=== PATIENT | female | born 1970 | race Caucasian/White ===

== ENCOUNTER 2016-08-21 18:19 | Observation (INO) | payer BC ==
[2016-08-21 19:25] VITALS: BMI 26.1
[2016-08-21 19:40] LABS: MPV 6.5 fL (7.4-10.4)
[2016-08-21 19:44] LABS: LEUKOCYTES/URINE 2+ (NEGATIVE); NITRITE/URINE NEG (NEGATIVE); URINE OCCULT BLOOD 1+ (NEG/TRACE); WBC/URINE TNTC (0-5)
[2016-08-21 19:57] LABS: SEG NEUTROPHIL 91 % (45-76)
[2016-08-21 19:58] LABS: BLOOD UREA NITROGEN 20 MG/DL (7-17); CALC CORRECTED 9.7 MG/DL (8.4-10.2); CALCIUM 9.2 MG/DL (8.4-10.2); CALCULATED OSMOLALITY 271 MOs/Kg (270-290); CHLORIDE 101 mEq/L (98-107); GLUCOSE 131 MG/DL (70-99); SODIUM LEVEL 138 mEq/L (137-146); TOTAL PROTEIN 7.2 G/DL (6.3-8.2)
--- NOTE | 2016-08-21 21:41 | DIRPT ---
CLINICAL DATA: Right flank pain and hematuria, history of calculi EXAM: CT ABDOMEN AND PELVIS WITHOUT CONTRAST TECHNIQUE: Multidetector CT imaging of the abdomen and pelvis was performed following the standard protocol without IV contrast. COMPARISON: 12/28/2007 FINDINGS: Lower chest: Minimal subsegmental atelectasis or scarring lateral left lung base Hepatobiliary: Negative Pancreas: Negative Spleen: Negative Adrenals/Urinary Tract: Bladder is decompressed. Adrenal glands are negative. Left kidney is negative. There is severe nephromegaly on the right. There is perinephric inflammation on the right. There is severe collecting system dilatation within the right kidney. There is a stone measuring 11 mm in the upper pole. There is a 13 interpolar stone. There are 2 stones in the lower pole measuring 10 and 11 mm, respectively. There are a few tiny stone fragments in the proximal ureter just beyond the ureteropelvic junction. Beyond this the ureter is decompressed with no calculi seen more distally. Stomach/Bowel: Negative Vascular/Lymphatic: Mild atherosclerotic aortoiliac calcification Reproductive: Negative Other: No ascites Musculoskeletal: No acute findings IMPRESSION: Numerous intrarenal calculi on the right. Right nephromegaly with perinephric inflammation and severe hydronephrosis of the intrarenal collecting system. There are a few tiny calculi in the proximal most aspect of the right ureter, beyond which the ureter is decompressed. There appears to be obstruction at the level of the proximal most right ureter. This may be related to the tiny calculi observed, and it is possible that all these calculi are more extensive than they appear radiographically. Other less likely possibilities include stricture or transitional neoplasm causing obstruction at this level. Electronically Signed By: Anshul Mccray M.D. On: 08/21/2016 21:39
[2016-08-21] MEDS ORDERED: CEFTRIAXONE 2 GM in D5W 100 ML IV ONE (22:26)
--- NOTE | 2016-08-21 22:31 | EDPRACDOC ---
- General Information Chief Complaint: Back Pain Stated Complaint: RT FLANK PAIN Time Seen by Provider: 08/21/16 22:25 Information Source: Patient Mode Of Arrival: Car Home Medications: Home Medications Ciprofloxacin HCl [Cipro] 500 mg PO BID #14 tab 08/07/15 Phenazopyridine HCl [Pyridium] 200 mg PO TID PRN #6 tablet 08/07/15 Ciprofloxacin HCl [Cipro] 500 mg PO BID #20 tab 08/11/16 Hydrocodone Bit/Acetaminophen [Hydrocodon-Acetaminophen 5-325] 1 - 2 tab PO Q4H PRN #20 tab 08/11/16 Ondansetron HCl [Zofran] 4 mg PO TID PRN #14 tablet 08/11/16 Allergies/Adverse Reactions: Allergies Allergy/AdvReac Type Severity Reaction Status Date / Time No Known Allergies Allergy Verified 08/07/15 19:24 - History of Present Illness Onset: 2 weeks Pain Location: Reports: Right, Flank Pain Radiates To: Reports: None Pain Caused By: Reports: Spontaneous Relevant History: Reports: Urolithiasis Currently ?: No Pain Severity: Reports: Moderate Pain Quality: Reports: Sharp Associated Signs and Symptoms: Reports: Nausea ED Past Medical History - History Reviewed Yes Nurses notes reviewed and agree except as marked - Patient Medical History Psychological History: Denies: Depression - Social Medical History Smoking Status: Never smoker EDM Review of Systems - Review of Systems ROS Negative Except as Marked: Yes All systems reviewed and were negative except as marked - Physical Exam Constitutional: Alert (Awake), No apparent distress Oriented to: Time, Person, Place Last recorded Vital Signs: Last Vital Signs Temp 98.6 F 08/21/16 19:16 Pulse 74 08/21/16 22:03 Resp 18 08/21/16 22:03 BP 110/56 L 08/21/16 22:03 Pulse Ox 96 08/21/16 22:03 Oxygen Pulse Oxygen Saturation 96 O2 Device Room Air Oxygen Flow Rate Fraction of Inspired Oxygen ( FIO2) - HEENT Head: Normal ( normocephalic) Eye Exam: Normal (PERRL, EOMI, Sclera white) Oropharynx: Normal (Pharynx:Moist without exudate,Gums-no swelling) Tympanic Membrane: Normal ENT EAC: Normal TMJ: Normal Nose: No Symptoms Reported (septum midline) Neck: Normal (FROM, trachea at midline) - Respiratory/Cardiovascular Respiratory: Normal - CTA (BBS clear to auscultation without adventitious sounds ) Cardiovascular: Normal (RRR without murmur, gallop or rub) - GI Auscultation: Normal (NABS) Palpation: Normal (Soft,No rebound or guarding, non distended) Tenderness: Non tender Guthrie's Sign: Negative - Musculoskeletal Back: CVA Tenderness Extremities: Normal (Normal tone, Pulses 2+ No cyanosis or edema, FROM) - Integumentary Skin: Normal, Warm, Dry Lymphatics: Normal (no adenopathy) - Neurologic Memory Impaired: Normal Motor Function: Normal (Normal tone, Pulses 2+ No cyanosis or edema, FROM) Cranial Nerve: Normal (CN II-X11 intact sensation, strength 5/5) Cerebellar: Normal Mood Description: Normal Perception: Normal - Results 08/21/16 19:31 08/21/16 19:31 WBC 25.2 xk/uL (3.8-10.8) H 08/21/16 19:31 RBC 4.14 xM/uL (4.20-5.40) L 08/21/16 19:31 Hgb 10.9 g/dL (12.0-16.0) L 08/21/16 19:31 Hct 33.7 % (36-47) L 08/21/16 19:31 MCV 82 fL (81-99) 08/21/16 19:31 MCH 26.3 pg (27-32) L 08/21/16 19:31 MCHC 32.3 g/dl (33-36) L 08/21/16 19:31 RDW 15.4 % (11.5-14.5) H 08/21/16 19:31 Plt Count 521 xk/uL (130-400) H 08/21/16 19:31 MPV 6.5 fL (7.4-10.4) L 08/21/16 19:31 Neut % (Auto) Cancelled 08/21/16 19:31 Lymph % (Auto) Cancelled 08/21/16 19:31 Moore % (Auto) Cancelled 08/21/16 19:31 Eos % (Auto) Cancelled 08/21/16 19:31 Baso % (Auto) Cancelled 08/21/16 19:31 Absolute Neuts (auto) Cancelled 08/21/16 19:31 Absolute Lymphs (auto) Cancelled 08/21/16 19:31 Seg Neuts % (Manual) 91 % (45-76) H 08/21/16 19:31 Band Neutrophils % 5 % (0-5) 08/21/16 19:31 Lymphocytes % (Manual) 3 % (17-44) L 08/21/16 19:31 Monocytes % (Manual) 1 % (0-10) 08/21/16 19:31 Absolute Neutrophils 24.19 xk/uL (1.7-8.2) H 08/21/16 19:31 Absolute Lymphocytes 0.76 xk/uL (0.65-4.75) 08/21/16 19:31 Platelet Estimate Norm (NORMAL) 08/21/16 19:31 RBC Morphology Norm 08/21/16 19:31 Sodium 138 mEq/L (137-146) 08/21/16 19:31 Potassium 4.2 mEq/L (3.5-5.1) 08/21/16 19:31 Chloride 101 mEq/L (98-107) 08/21/16 19:31 Carbon Dioxide 26 mMOL/L (22-33) 08/21/16 19:31 Anion Gap 15 mEq/L (8-16) 08/21/16 19:31 BUN 20 MG/DL (7-17) H 08/21/16 19:31 Creatinine 0.90 MG/DL (0.52-1.04) 08/21/16 19:31 Estimated GFR (MDRD) > 60 mL/min (>=60) 08/21/16 19:31 Glucose 131 MG/DL (70-99) H 08/21/16 19:31 Calculated Osmolality 271 MOs/Kg (270-290) 08/21/16 19:31 Calcium 9.2 MG/DL (8.4-10.2) 08/21/16 19:31 Corrected Calcium 9.7 MG/DL (8.4-10.2) 08/21/16 19:31 Total Bilirubin 0.5 MG/DL (0.2-1.3) 08/21/16 19:31 AST 12 IU/L (14-36) L 08/21/16 19:31 ALT 24 IU/L (9-52) 08/21/16 19:31 Alkaline Phosphatase 53 IU/L (38-126) 08/21/16 19:31 Total Protein 7.2 G/DL (6.3-8.2) 08/21/16 19:31 Albumin 3.5 G/DL (3.5-5.0) 08/21/16 19:31 Urine Color Miriam 08/21/16 19:31 Urine Clarity Cldy 08/21/16 19:31 Urine pH 6.0 (5.0-8.0) 08/21/16 19:31 Ur Specific [place] 1.030 (1.003-1.035) 08/21/16 19:31 Urine Protein 1+ (NEG/TRACE) H 08/21/16 19:31 Urine Glucose (UA) Trace (NEGATIVE) 08/21/16 19:31 Urine Ketones Neg (NEGATIVE) 08/21/16 19:31 Urine Occult Blood 1+ (NEG/TRACE) H 08/21/16 19:31 Urine Nitrite Neg (NEGATIVE) 08/21/16 19:31 Urine Bilirubin Neg (NEGATIVE) 08/21/16 19:31 Urine Urobilinogen <2.0 MG/DL (0-1) 08/21/16 19:31 Ur Leukocyte Esterase 2+ (NEGATIVE) H 08/21/16 19:31 Urine RBC 10-20 (0-5) H 08/21/16 19:31 Urine WBC Tntc (0-5) H 08/21/16 19:31 Ur Epithelial Cells 1+ 08/21/16 19:31 Urine Bacteria Few (NEG/FEW) 08/21/16 19:31 Urine Mucus Mod (NEG/OCC) H 08/21/16 19:31 Urine Test Neg (NEGATIVE) 08/21/16 19:31 Lab Results 08/21/16 08/21/16 08/21/16 19:31 19:31 19:31 WBC 25.2 H RBC 4.14 L Hgb 10.9 L Hct 33.7 L MCV 82 MCH 26.3 L MCHC 32.3 L RDW 15.4 H Plt Count 521 H MPV 6.5 L Neut % (Auto) Cancelled Lymph % (Auto) Cancelled Moore % (Auto) Cancelled Eos % (Auto) Cancelled Baso % (Auto) Cancelled Absolute Neuts (auto) Cancelled Absolute Lymphs (auto) Cancelled Seg Neuts % (Manual) 91 H Band Neutrophils % 5 Lymphocytes % (Manual) 3 L Monocytes % (Manual) 1 Absolute Neutrophils 24.19 H Absolute Lymphocytes 0.76 Platelet Estimate Norm RBC Morphology Norm Sodium 138 Potassium 4.2 Chloride 101 Carbon Dioxide 26 Anion Gap 15 BUN 20 H Creatinine 0.90 Estimated GFR (MDRD) > 60 Glucose 131 H Calculated Osmolality 271 Calcium 9.2 Corrected Calcium 9.7 Total Bilirubin 0.5 AST 12 L ALT 24 Alkaline Phosphatase 53 Total Protein 7.2 Albumin 3.5 Urine Color Urine Clarity Urine pH Ur Specific [place] Urine Protein Urine Glucose (UA) Urine Ketones Urine Occult Blood Urine Nitrite Urine Bilirubin Urine Urobilinogen Ur Leukocyte Esterase Urine RBC Urine WBC Ur Epithelial Cells Urine Bacteria Urine Mucus Urine Test Neg 08/21/16 19:31 WBC RBC Hgb Hct MCV MCH MCHC RDW Plt Count MPV Neut % (Auto) Lymph % (Auto) Moore % (Auto) Eos % (Auto) Baso % (Auto) Absolute Neuts (auto) Absolute Lymphs (auto) Seg Neuts % (Manual) Band Neutrophils % Lymphocytes % (Manual) Monocytes % (Manual) Absolute Neutrophils Absolute Lymphocytes Platelet Estimate RBC Morphology Sodium Potassium Chloride Carbon Dioxide Anion Gap BUN Creatinine Estimated GFR (MDRD) Glucose Calculated Osmolality Calcium Corrected Calcium Total Bilirubin AST ALT Alkaline Phosphatase Total Protein Albumin Urine Color Miriam Urine Clarity Cldy Urine pH 6.0 Ur Specific [place] 1.030 Urine Protein 1+ H Urine Glucose (UA) Trace Urine Ketones Neg Urine Occult Blood 1+ H Urine Nitrite Neg Urine Bilirubin Neg Urine Urobilinogen <2.0 Ur Leukocyte Esterase 2+ H Urine RBC 10-20 H Urine WBC Tntc H Ur Epithelial Cells 1+ Urine Bacteria Few Urine Mucus Mod H Urine Test - Departure Yes I personally saw and evaluated the patient. Disposition: Admit IP To This Hospital Condition: Good Final Diagnosis: URETEROLITHIASIS, PYELONEPHRITIS Decision to Admit Time: 22:31 (HEATHER) Decision to admit date: 08/21/16 Decision to admit: from ED
[2016-08-21] MEDS ORDERED: ONDANSETRON HCL 4 MG/2 ML VIAL IV ONE (22:38)
[2016-08-21] MEDS ORDERED: HYDROmorphone 1 MG INJECTION IV ONE (22:38)
[2016-08-21] MEDS ORDERED: HYDROmorphone 1 MG INJECTION IV PRN (23:05)
[2016-08-22] MEDS: D5W-1/4NS 1,000 ML IV SCH ×2 (00:05→08:15)
[2016-08-22] MEDS: ONDANSETRON HCL 4 MG/2 ML VIAL IV PRN ×2 (00:08→07:29)
[2016-08-22] MEDS ORDERED: Vaccine Screening Complete SCH (01:00)
[2016-08-22] MEDS ORDERED: HYDROmorphone 2 MG/ML VIAL ONE (07:24)
--- NOTE | 2016-08-22 11:19 | HISTPHYS ---
- Chief Complaint Pain in the rt flank and rt upper quadrant on and off for 4 to 5 days.Seen in ER 4 days ago and treated for the UTI and sent home.Camr back last night with the worst pain,nausea and vomiting. - Past Medical History GI/ History: Reports: Kidney Stones. Denies: Hepatitis (type) Systemic History: Denies: Anemia Psychological History: Denies: Anxiety, Bipolar Disorder, Depression - Surgical History Denies: Mastectomy - Family History Reports: Hypertension (MOTHER), Diabetes (MOTHER). Denies: Cancer, Stroke, Cardiac Disorders - Allergies Allergies No Known Allergies Allergy (Verified 08/07/15 19:24) - Medications Home Medications No Home Medications 08/22/16 - Social History Travel Outside of [place] in the Last 3 Months?: No Smoking Status: Never smoker Review Of Systems - Review of Systems Genitourinary: Other (History of stone desease and had ESWL many years ago.) - Exam Vital Signs: Temperature: 98.1 F (08/22/16 10:40) HR: 70 (08/22/16 10:40) RR: 16 (08/22/16 10:40) BP: 112/61 (08/22/16 10:40) Pulse Ox: 98 (08/21/16 23:40) General: Alert, Oriented x3, Cooperative, No acute distress Cardiovascular: Regular rate Gastrointestinal: Soft Genitourinary Exam: Other (Tender in the rt CVA on percussion.) Skin: Warm,Dry and Intact Psych/Mental Status: Appropriate - Labs Result Diagrams: 08/21/16 19:31 08/21/16 19:31 - Assessment and Plan (1) Right kidney stone Acute N20.0 - CALCULUS OF KIDNEY Cysto,rt retrograde pyelogram and placement of DJ stent and ESWL at a later date. Treat the Pyelonephritis in the mean time.
[2016-08-22] MEDS ORDERED: MEPERIDINE 25 MG/ML TUBEX IV PRN (12:11)
[2016-08-22] MEDS ORDERED: hydrALAZINE 20 MG/ML VIAL IV PRN (12:11)
[2016-08-22] MEDS ORDERED: FENTANYL 100 MCG/2 ML VIAL IV PRN ×2 (12:11)
[2016-08-22] MEDS ORDERED: HYDROmorphone 1 MG INJECTION IV PRN ×2 (12:11)
[2016-08-22] MEDS ORDERED: ONDANSETRON HCL 4 MG ODT TAB PO PRN (12:11)
[2016-08-22] MEDS ORDERED: ONDANSETRON HCL 4 MG/2 ML VIAL IV PRN (12:11)
[2016-08-22] MEDS ORDERED: PROMETHAZINE 25 MG/ML VIAL IV PRN ×2 (12:11)
[2016-08-22] MEDS ORDERED: LABETALOL 20 MG/4 ML SYRINGE IV PRN (12:11)
--- NOTE | 2016-08-22 12:11 | SC.ANESPOS ---
Post-Anesthesia Note LOC: [place] on Calling Post-Anesthesia Assessment: Awake, Returned to Baseline, Hemodynamically Stable , Pain Control Adequate Phase I & II Recovery Complete: Yes Apparent Anesthesia Complication: No : N PACU Discharge Time: 23:36 - Vital Signs Blood Pressure: 144/84 Pulse: 82 Resp Rate: 16 O2 Sat: 98 Temp: 97.9 F - Comments Anesthesia Discharge Time Report Time 23:36
[2016-08-22] MEDS ORDERED: ISOVUE-300 (61%) 50 ML ONE (12:14)
--- NOTE | 2016-08-22 12:14 | HIM.ANES ---
Anesthesia Evaluation & Plan - Focused Review of Systems Now: No Cardiac History: No: Hx Cardiac Disorders HEENT: No: Other HEENT Problems Gastrointestinal: No: Hx Gastrointestinal Disorders Neurological/Musculoskeletal: Yes: Hx Migraine No: Hx Neurological Disorders Psychological: No Hx Anxiety, No Hx Depression, No Hx Mental/Emotional Disorders , No Hx Bipolar Disorder Blood/Autoimmune: No: Hx Blood Transfusions, Hx Anemia, Hx AIDS, Hx Hepatitis (type) Smoking Status: Never smoker - Focused Physical Exam NPO since: midnight Mallampati: Class II Thyromental Distance: Greater than 3 Neck: Full Range of Motion Dental: Normal - no significant findings Cardiovascular/Chest: Normal Respiratory: Lungs clear Any problems with anesthesia, including nausea and vomiting?: No Any relatives with a history of Malignant Hyperthermia?: No Beta Eligio given (if appropriate): N/A Other: Problem List Problem Status Onset Right kidney stone Acute Pyelonephritis Acute PT/PTT/INR/ Urine Test Neg (NEGATIVE) 08/21/16 19:31 Allergies Allergy/AdvReac Type Severity Reaction Status Date / Time No Known Allergies Allergy Verified 08/07/15 19:24 Home Medications Medication Instructions Recorded Last Taken Type No Home Medications 08/22/16 Unknown History Vital Signs Temperature 97.9 F 08/22/16 12:11 Pulse Rate 82 08/22/16 12:11 Respiratory Rate 16 08/22/16 12:11 Blood Pressure 144/84 08/22/16 12:11 Pulse Oxygen Saturation 98 08/22/16 12:11 - Anesthetic Plan Anesthesia Type: General ASA Class: 2 -: I have examined this patient and reviewed the medical record. The patient has been assessed prior to anesthesia. Risks and benefits of anesthesia and anesthetic technique options have been discussed and all questions answered. The patient accepts the risk and desires me to proceed with the planned anesthetic.
[2016-08-22] MEDS ORDERED: MIDAZOLAM 2 MG/2 ML VIAL IV ONE (12:29)
[2016-08-22] MEDS ORDERED: PROPOFOL 200 MG/20 ML VIAL IV ONE (12:29)
[2016-08-22] MEDS ORDERED: FENTANYL 100 MCG/2 ML VIAL IV ONE (12:29)
[2016-08-22] MEDS ORDERED: GLYCOPYRROLATE 1 MG VIAL IM ONE (12:29)
[2016-08-22] MEDS ORDERED: DEXAMETHASONE 4 MG/ML VIAL IV ONE (12:29)
[2016-08-22] MEDS ORDERED: ONDANSETRON HCL 4 MG/2 ML VIAL IV ONE (12:29)
[2016-08-22] MEDS ORDERED: HYDROCODONE 5 MG/ACETAMIN 325 MG TAB PO PRN (13:06)
[2016-08-22] MEDS ORDERED: OXYBUTYNIN 5 MG TAB PO PRN (13:06)
--- NOTE | 2016-08-22 13:22 | HIMOPRPT ---
DATE OF PROCEDURE: 08/22/16 PREOPERATIVE DIAGNOSIS: RT Renal calculi and pyelonephritis[]. POSTOPERATIVE DIAGNOSIS: [].Same PROCEDURE PERFORMED: Cystoscopy, [right retrograde pyelogram, and double-J ureteral stent.. ANESTHESIA: General by LMA ANESTHESIOLOGI[]. SURGEON: Gael Chiu MD PROCEDURE IN DETAIL: The patient was brought to the operating room and placed in supine position. General anesthesia by LMA was given. Once adequate level of anesthesia was obtained, the patient was placed in lithotomy position. Genitalia was prepped and draped in usual sterile manner. The cystoscopy was carried down through [23] size of operative cystoscope. .Bladder interior was examined. Both ureteral orifices were seen. There was effluxing seen on the right and left side. No other abnormality within the bladder was noted. [Righ] retrograde pyelogram was carried out through 5-Slovenian cone-tipped ureteral catheter which was introduced without any difficulty. Contrast went to the renal pelvis. a guidewire was passed and it bypassed the stone, went to the renal pelvis, . In the end of the procedure, a double-J ureter stent, size [ 6]-Slovenian and cm long with a tether was inserted. Tether was brought out through the urethra and taped. The position of the stent was checked and found to be very adequate upper end in the renal pelvis and lower end in the bladder. The patient was then returned to the recovery room in stable and satisfactory condition. Discharge Medications:[]. Follow-up: The patient will be observed in the hospital for the treatment of the pyelonephritis.
[2016-08-22] MEDS ORDERED: LR 1,000 ML IV ONE (13:50)
[2016-08-22] MEDS ORDERED: Levofloxacin 500 mg/100 ml D5W 500 MG/100 ML RTU IV SCH (14:00)
[2016-08-22] MEDS: D5W/LR 1,000 ML IV SCH (22:10)
[2016-08-23 06:20] LABS: MPV 7.1 fL (7.4-10.4)
[2016-08-23 06:49] LABS: BLOOD UREA NITROGEN 15 MG/DL (7-17); CALCIUM 8.7 MG/DL (8.4-10.2); CALCULATED OSMOLALITY 268 MOs/Kg (270-290); CHLORIDE 105 mEq/L (98-107); GLUCOSE 123 MG/DL (70-99); SODIUM LEVEL 138 mEq/L (137-146)
[2016-08-23] MEDS: D5W/LR 1,000 ML IV SCH (08:16)
[2016-08-23 08:18] LABS: SEG NEUTROPHIL 90 % (45-76)
[2016-08-23 10:33] VITALS: BP 115/56; PULSE 63; TEMP 97.9
[2016-08-23] MEDS ORDERED: ONDANSETRON HCL 4 MG ODT TAB PO PRN (11:47)
--- NOTE | 2016-08-23 11:54 | PCM.DCS92 ---
- Final/Secondary Discharge Diagnosis (1) Right kidney stone Acute N20.0 - CALCULUS OF KIDNEY Present on Admission: Yes Plan/Goal/Comment: Pt will be seen in the office and ESWL will be arranged for the stones in the rt kidney. Discharge Disposition: Home Discharge Condition: Good Cognitive Discharge Status: Unimpaired Fuctional Discharge Status: Independent Forms: Patient Discharge Instructions Physician Follow up/Referrals: Gael Chiu MD [Staff Physician] - 08/23/16 Additional Instructions: YOU WILL NEED TO GO BY DR. CHIU'S OFFICE TODAY AFTER DISCHARGE TO SIGN CONSENT FORMS FOR PROCEDURE. Diet at Discharge: Regular Activity: No Heavy Lifting Call Office For: Worsening Symptoms, Fever over 100.5, Pain Uncontrolled By Meds - DC Summary Notes Hospital Course Note:: Discharge summary on patient named AMA BORGES admitted to [facility] on 08/21/16 by Gael Chiu MD. Date of discharge is []. Following the admission Pt was given analgesics, antibiotics and she underwent endoscopic manipulation of the stone at the UPJ and a stent was placed. The WBC count is st6ill high but she has remained afebrile and thwe cultures have been negative > she is being discharged and will be seen in the office for follow up and ESWL will be arranged. Final Diagnosis : Right renal calculi and right pyelonephritis. Wound Care May Shower Starting:: 08/23/16 Ability To Perform Care (if applicable): Yes
[2016-08-23] MEDS ORDERED: LEVOFLOXACIN 500 MG TAB PO SCH (14:00)
[2016-08-23] MEDS ORDERED: OXYCODONE HCL 5 MG TABLET PO SCH (14:00)
== END 2016-08-23 12:30 | disposition home or self-care (01) ==
LOC: ED 18:19 → MASU 22:56
PROVIDERS: ADMIT Urology; ATTEND Urology
PROC: 0T768DZ Dilation of Right Ureter with Intraluminal Device, Via Natural or Artificial Opening Endoscopic (ICD-10-PCS; principal; 2016-08-21)
DX: N12 Tubulo-interstitial nephritis, not specified as acute or chronic (principal); N20.0 Calculus of kidney
CPT/HCPCS: 36415; 52332; 74176; 80048; 80053; 81001; 81025; 85007; 85027; 87040; 87086; 96365; 96375; 99284; G0378; J0696; J1100; J1170; J1956; J2250; J2405; J3010; J3490; J7060